=== PATIENT | female | born 1955 | race Caucasian/White ===

== ENCOUNTER → 2017-03-27 | Outpatient (CLI) | payer OTHER | LOC: BRMIMAGING 14:00 | PROVIDERS: ATTEND Family Medicine | DX: Z13.820 Encounter for screening for osteoporosis (principal); M85.80 Other specified disorders of bone density and structure, unspecified site ==

== ENCOUNTER → 2018-03-23 | Outpatient (CLI) | payer OTHER | LOC: FIMAGING 12:51 | PROVIDERS: ATTEND Family Medicine | DX: Z12.31 Encounter for screening mammogram for malignant neoplasm of breast (principal) ==

== ENCOUNTER → 2018-08-31 | Outpatient (CLI) | payer OTHER | LOC: GIMAGING 08:51 → EDSTATUS 16:27 | PROVIDERS: ATTEND Family Medicine | DX: S82.402A Unspecified fracture of shaft of left fibula, initial encounter for closed fracture (principal) | CPT/HCPCS: 73600-PO ==